=== PATIENT | female | born 1950 | race Caucasian/White ===

== ENCOUNTER 2020-02-06 21:35 | Emergency (ER) | payer MEDICARE ==
[2020-02-06] MEDS ORDERED: Lidocaine 1% PF 5 ML VIAL ONE (21:56)
[2020-02-06] MEDS ORDERED: Ketorolac Tromethamine 30 MG/ML VIAL ONE (22:01)
[2020-02-06] MEDS ORDERED: Morphine 4 MG/ML VIAL ONE (22:01)
[2020-02-06] MEDS ORDERED: Lidocaine 1% (PF) 30 ML VIAL ONE (22:01)
[2020-02-06] MEDS ORDERED: Adacel (T-DAP) 0.5 ML SYRINGE ONE ×2 (22:01→22:55)
== END 2020-02-06 23:39 | disposition home or self-care (01) ==
LOC: ERS 21:35
DX: S61.210A Laceration without foreign body of right index finger without damage to nail, initial encounter (principal); S61.212A Laceration without foreign body of right middle finger without damage to nail, initial encounter; F32.9 Major depressive disorder, single episode, unspecified; Z87.891 Personal history of nicotine dependence; W26.8XXA Contact with other sharp object(s), not elsewhere classified, initial encounter
CPT/HCPCS: 12001; 90471; 90715; J1885; J2001; J2270

== ENCOUNTER 2021-12-28 13:25 | Outpatient (CLI) | payer MEDICARE | END 2021-12-28 13:26 | disposition home or self-care (01) | LOC: LABBT 13:25 | PROVIDERS: ATTEND Orthopaedic Surgery Orthopaedic Surgery of the Spine | DX: M48.02 Spinal stenosis, cervical region (principal); G95.9 Disease of spinal cord, unspecified; Z53.9 Procedure and treatment not carried out, unspecified reason | CPT/HCPCS: 80048; 85027; 86850; 86900; 86901; U0003; U0005 ==

== ENCOUNTER 2021-12-31 11:20 | Day surgery (SDC) | payer MEDICARE ==
[2021-12-28 14:50] LABS: Hemoglobin 7.4 g/dL (12.0-15.5); Mean Corpuscular HGB CONC 30.8 g/dL (32.0-36.0); Mean Corpuscular Hemoglobin 29.6 pg (27.0-33.0); Mean Platelet Volume 9.3 fl (7.4-10.4); Platelet Count 573 10x3/uL (150-450); RBC Distribution Width 15.9 % (11.5-14.5); White Blood Cell (WBC) Count 5.5 10x3/uL (3.5-10.5)
[2021-12-28 15:04] LABS: Anion Gap 16 mmol/L (10-20); BUN (Urea Nitrogen) 19 mg/dL (9.8-20.1); Calc. Creatinine Clearance 0 mL/min (70-130); Calcium 8.8 mg/dL (7.8-10.44); Carbon Dioxide 26 mmol/L (23-31); Chloride 108 mmol/L (98-107); Glucose 92 mg/dL (83-110); Potassium 4.4 mmol/L (3.5-5.1); Sodium 146 mmol/L (136-145)
[2021-12-29 11:03] VITALS: BMI 15.9
[~2021-12-31 11:20] MED LIST: Iopamidol 370 76% 50 ML VIAL FS ONE
[2021-12-31] MEDS ORDERED: Lidocaine 1% (PF) 30 ML VIAL ONE (12:50)
== END 2021-12-31 15:20 | disposition home or self-care (01) ==
LOC: SDC 11:20
PROVIDERS: ATTEND Thoracic Surgery (Cardiothoracic Vascular Surgery)
PROC: 06H03DZ Insertion of Intraluminal Device into Inferior Vena Cava, Percutaneous Approach (ICD-10-PCS; principal; 2021-12-31)
DX: I82.401 Acute embolism and thrombosis of unspecified deep veins of right lower extremity (principal); Z79.01 Long term (current) use of anticoagulants; Z20.822 Contact with and (suspected) exposure to COVID-19
CPT/HCPCS: 37191; 80048; 85027; 86850; 86900; 86901; 86920; U0003; U0005; C1880; J2001; Q9967

== ENCOUNTER 2022-01-12 12:17 | Outpatient (CLI) | payer OTHER ==
[2022-01-12 14:17] LABS: Hemoglobin 9.3 g/dL (12.0-15.5); Mean Corpuscular Hemoglobin 29.5 pg (27.0-33.0); Mean Corpuscular Volume 95.2 fl (81.6-98.3); Mean Platelet Volume 10.1 fl (7.4-10.4); Platelet Count 355 10x3/uL (150-450); RBC Distribution Width 14.1 % (11.5-14.5); Red Blood Cell (RBC) Count 3.15 10x6/uL (3.90-5.03); White Blood Cell (WBC) Count 5.3 10x3/uL (3.5-10.5)
[2022-01-12 14:23] LABS: Anion Gap 13 mmol/L (10-20); BUN (Urea Nitrogen) 14 mg/dL (9.8-20.1); Calc. Creatinine Clearance 0 mL/min (70-130); Calcium 8.9 mg/dL (7.8-10.44); Carbon Dioxide 29 mmol/L (23-31); Chloride 104 mmol/L (98-107); Estimated GFR 76; Glucose 95 mg/dL (83-110); Potassium 3.8 mmol/L (3.5-5.1); Sodium 142 mmol/L (136-145)
[2022-01-12 14:30] LABS: PTT 28.4 sec (22.0-33.0); Prothrombin Time 10.5 sec (9.5-12.1)
== END 2022-01-12 12:18 | disposition home or self-care (01) ==
LOC: LABBT 12:17
PROVIDERS: ATTEND Neurological Surgery
DX: Z01.812 Encounter for preprocedural laboratory examination (principal); M48.02 Spinal stenosis, cervical region; G95.9 Disease of spinal cord, unspecified; Z20.822 Contact with and (suspected) exposure to COVID-19
CPT/HCPCS: 80048; 85027; 85610; 85730; 87811

== ENCOUNTER 2022-01-13 10:30 | Observation (INO) | payer OTHER ==
[2022-01-12 09:35] VITALS: BMI 13.5
[2022-01-13] MEDS ORDERED: Thrombin 5000 UNITS/5 ML VIAL ONE (10:47)
[2022-01-13] MEDS ORDERED: Bupivacaine PF 0.5% 30 ML VIAL ONE (10:47)
[2022-01-13] MEDS ORDERED: EPINEPHrine 1 MG/ML AMP ONE (10:47)
[2022-01-13] MEDS ORDERED: Neomycin-Polymyxin 1 ML AMP ONE (10:47)
[2022-01-13] MEDS ORDERED: Bacitracin Zinc Ointment 30 gm TUBE ONE (10:52)
[2022-01-13] MEDS ORDERED: fentaNYL Citrate/PF 100 MCG/2 ML SYRINGE ONE (11:37)
[2022-01-13] MEDS ORDERED: Sodium Chloride 0.9% 100 ML ONE (11:44)
[2022-01-13] MEDS ORDERED: CEFAZOLIN 2 GM VIAL ONE (11:44)
[2022-01-13] MEDS ORDERED: Glycopyrrolate 0.2 MG/ML 5 ML SYRINGE ONE (12:03)
[2022-01-13] MEDS ORDERED: Rocuronium Bromide 10 MG/ML (10ML VIAL) ONE (12:03)
[2022-01-13] MEDS ORDERED: Ondansetron PF 4 MG/2 ML Vial ONE (12:03)
[2022-01-13] MEDS ORDERED: PHENYLEPHRINE-NS 100 MCG/ML 10 ML SYRINGE ONE (12:03)
[2022-01-13] MEDS ORDERED: Lidocaine 1% PF 5 ML VIAL ONE (12:03)
[2022-01-13] MEDS ORDERED: ePHEDrine 50 MG/ML VIAL ONE (12:03)
[2022-01-13] MEDS ORDERED: PROPOFOL 200 MG/20 ML VIAL ONE (12:03)
[2022-01-13] MEDS ORDERED: Acetaminophen/Codeine 30-300mg Tablet PO PRN (12:11)
[2022-01-13] MEDS ORDERED: diphenhydrAMINE 25 MG CAP PO PRN (12:11)
[2022-01-13] MEDS ORDERED: Promethazine 25 MG TAB PO PRN (12:11)
[2022-01-13] MEDS ORDERED: HYDROcodone/Acetaminophen 10/325 mg Tablet PO PRN (12:11)
[2022-01-13] MEDS ORDERED: Morphine 2 MG/ML VIAL SLOW IVP PRN (12:11)
[2022-01-13] MEDS ORDERED: Ondansetron PF 4 MG/2 ML Vial IVP PRN (12:11)
[2022-01-13] MEDS ORDERED: Milk Of Magnesia 30 ML UDCUP PO PRN (12:11)
[2022-01-13] MEDS ORDERED: Bisacodyl 10 MG SUPP PR PRN (12:11)
[2022-01-13] MEDS ORDERED: Cyclobenzaprine 10 MG TAB PO PRN (12:11)
[2022-01-13] MEDS ORDERED: Mag-Al 1200 mg/1200 mg/30 ML UDCUP PO PRN (12:11)
[2022-01-13] MEDS ORDERED: Promethazine HCl 25 MG/ML VIAL IM PRN (14:59)
[2022-01-13] MEDS ORDERED: Morphine Sulfate 2 MG/ML SYRINGE SLOW IVP PRN (14:59)
[2022-01-13] MEDS ORDERED: HYDROmorphone 2 MG/ML VIAL SLOW IVP PRN (14:59)
[2022-01-13] MEDS ORDERED: Meperidine HCl/PF 25 MG/ML VIAL SLOW IVP PRN (14:59)
[2022-01-13] MEDS ORDERED: Promethazine HCl 25 MG/ML VIAL IVPB PRN (14:59)
[2022-01-13] MEDS ORDERED: Ondansetron HCl/PF 4 MG/2 ML Vial IVP PRN (14:59)
[2022-01-13] MEDS ORDERED: Fentanyl 100 MCG/2 ML VIAL ONE (15:24)
[2022-01-13] MEDS: Sodium Chloride 0.9% 1,000 ML IV SCH (18:11)
[2022-01-13] MEDS ORDERED: hydrALAZINE 20 MG/ML VIAL SLOW IVP PRN (19:02)
[2022-01-13] MEDS ORDERED: hydrALAZINE 20 MG/ML VIAL ONE (19:09)
[2022-01-13] MEDS ORDERED: ceFAZolin 2 GM/Dextrose 50 ML 2 GM in Premix Bag 1 BAG IVPB SCH (20:00)
[2022-01-13] MEDS ORDERED: CEFAZOLIN 2 GM VIAL IVPB SCH (20:00)
[2022-01-13] MEDS: CEFAZOLIN 2 GM in Sodium Chloride 0.9% 100 ML IVPB SCH (23:38)
[2022-01-14] MEDS: HYDROcodone/Acetaminophen 7.5/325 mg Tablet PO PRN ×2 (04:03→13:21)
[2022-01-14] MEDS: CEFAZOLIN 2 GM in Sodium Chloride 0.9% 100 ML IVPB SCH (04:04)
[2022-01-14] MEDS: Sodium Chloride 0.9% 1,000 ML IV SCH (04:11)
[2022-01-14 06:23] LABS: #Lymphocytes 0.9 thou/uL (1.20-3.40); #Monocytes 0.5 thou/uL (0.11-0.59); #Neutrophils 6.3 thou/uL (1.40-6.50); %Eosinophils 0.3 % (0.0-10.0); %Lymphocytes 11.5 % (21.0-51.0); %Monocytes 6.2 % (0.0-10.0); Hemoglobin 9.5 g/dL (12.0-16.0); Mean Corpuscular Hemoglobin 29.9 pg (27.0-31.0); Mean Corpuscular Volume 96.4 fL (78.0-98.0); Mean Platelet Volume 7.5 fL (7.4-10.4); Platelet Count 355 thou/uL (130-400); RBC Distribution Width 13.3 % (11.5-14.5); Red Blood Cell (RBC) Count 3.19 mill/uL (4.20-5.40); White Blood Cell (WBC) Count 7.7 thou/uL (4.8-10.8)
[2022-01-14 06:34] LABS: Anion Gap 13 mmol/L (10-20); BUN (Urea Nitrogen) 8 mg/dL (9.8-20.1); Calc. Creatinine Clearance 35 mL/min (70-130); Calcium 8.1 mg/dL (7.8-10.44); Carbon Dioxide 27 mmol/L (23-31); Chloride 104 mmol/L (98-107); Estimated GFR 79; Glucose 118 mg/dL (83-110); Potassium 3.7 mmol/L (3.5-5.1); Sodium 140 mmol/L (136-145)
[2022-01-14 13:15] VITALS: BP 160/75; TEMP 97.7
== END 2022-01-14 14:00 | disposition home or self-care (01) ==
LOC: SDC 10:30 → SJJU 16:48
PROVIDERS: ADMIT Neurological Surgery; ATTEND Neurological Surgery
PROC: 01N10ZZ Release Cervical Nerve, Open Approach (ICD-10-PCS; principal; 2022-01-13)
DX: M48.02 Spinal stenosis, cervical region (principal); M43.12 Spondylolisthesis, cervical region; G99.2 Myelopathy in diseases classified elsewhere; M19.90 Unspecified osteoarthritis, unspecified site; I10 Essential (primary) hypertension; M81.0 Age-related osteoporosis without current pathological fracture; Z86.718 Personal history of other venous thrombosis and embolism; Z87.891 Personal history of nicotine dependence; Z79.01 Long term (current) use of anticoagulants; Z79.899 Other long term (current) drug therapy; Z01.812 Encounter for preprocedural laboratory examination; G95.9 Disease of spinal cord, unspecified; Z20.822 Contact with and (suspected) exposure to COVID-19
CPT/HCPCS: 36415; 76000; 80048; 85025; 85027; 85610; 85730; 87811; 96374; 96375; 96376; G0378; J0171; J0360; J0690; J2405; J2704; J3010; J3370; J3490; S0020

== ENCOUNTER 2023-03-27 14:28 | Outpatient (CLI) | payer MEDICARE | END 2023-03-27 14:29 | disposition home or self-care (01) | LOC: ULT 14:28 | PROVIDERS: ATTEND Nurse Practitioner Family | DX: R60.0 Localized edema (principal); Z86.718 Personal history of other venous thrombosis and embolism | CPT/HCPCS: 93970 ==

== ENCOUNTER 2023-06-19 13:46 | Outpatient (CLI) | payer MEDICARE | END 2023-06-19 13:47 | disposition home or self-care (01) | LOC: BICULT 13:46 | PROVIDERS: ATTEND Nurse Practitioner Family | DX: M25.472 Effusion, left ankle (principal) ==